=== PATIENT | female | born 1960 | race Caucasian/White ===

== ENCOUNTER 2016-12-12 12:48 | Emergency (ER) | payer OTHER ==
[~2016-12-12] VITALS: Ht 154.9 cm; Wt 68.0 kg
[~2016-12-12 12:48] MED LIST: ADVAIR 250/501 DISK IH; ATIVAN1 MG PO; COGENTIN0.5 MG PO; ELAVIL10 MG PO; HYDROCODON-ACE1 EAC8 PO; LEVOTHYROXINE25 MCG PO; LIPITOR20 MG PO; LYRICA50 MG PO; METHADONE10 MG PO; NEURONTIN600 MG PO; NYSTATIN100000 UN1 PO; PARAFON FORTE500 MG PO; PHENOBARBITAL64.8 MG PO; PRILOSEC40 MG PO; PROAIR HFA8.5 GM IH; RELAFEN500 MG PO; SEROQUEL XR50 MG PO; SINGULAIR10 MG PO; SPIRIVA1 INHALATI IH; VENTOLIN HFA18 GM IH
[2016-12-12 16:32] VITALS: BP 108/71
== END 2016-12-12 16:32 | disposition home or self-care (01) ==
LOC: EME 12:48
DX: S91.131A Puncture wound without foreign body of right great toe without damage to nail, initial encounter (principal); L84 Corns and callosities; W45.0XXA Nail entering through skin, initial encounter; Y92.009 Unspecified place in unspecified non-institutional (private) residence as the place of occurrence of the external cause; Y93.01 Activity, walking, marching and hiking; F17.200 Nicotine dependence, unspecified, uncomplicated; Z88.8 Allergy status to other drugs, medicaments and biological substances; Z88.0 Allergy status to penicillin; Z91.041 Radiographic dye allergy status; Z91.030 Bee allergy status; G40.909 Epilepsy, unspecified, not intractable, without status epilepticus
CPT/HCPCS: 73660; 99281; 99283